=== PATIENT | male | born 1950 | race Caucasian/White ===

== ENCOUNTER 2020-01-23 06:03 | Inpatient (IN) | payer OTHER ==
[2020-01-11 12:00] VITALS: BMI 26.4
[2020-01-23] MEDS ORDERED: TRANEXAMIC ACID 1000 MG/10 ML VIAL IVPUSH ONE ×2 (06:50→10:25)
[2020-01-23] MEDS ORDERED: CELECOXIB 200 MG CAPSULE PO ONE (06:50)
[2020-01-23] MEDS ORDERED: oxyCODONE HCL 10 MG SUSTAINED ACTING TABLET PO ONE (06:50)
[2020-01-23] MEDS ORDERED: CEFAZOLIN 2 GM in DEXTROSE 5%-WATER - 50 ML IVPB ONE (06:50)
[2020-01-23] MEDS ORDERED: BUPIVICAINE 0.25%/MORPH PF/KETOROLAC - 51ML DISP.SYRINGE IA ONE ×3 (06:50→10:55)
[2020-01-23] MEDS ORDERED: PANTOPRAZOLE 40 MG TABLET PO ONE (06:51)
[2020-01-23] MEDS ORDERED: CEFAZOLIN 2 GM/D5W 2 GM/50 ML ML IVPB ONE (06:55)
[2020-01-23] MEDS ORDERED: PANTOPRAZOLE 40 MG TABLET ONE (07:02)
[2020-01-23] MEDS ORDERED: CELECOXIB 200 MG CAPSULE ONE (07:03)
[2020-01-23] MEDS ORDERED: oxyCODONE HCL 10 MG SUSTAINED ACTING TABLET ONE (07:03)
[2020-01-23] MEDS ORDERED: ROPIVACAINE HCL 0.5% 30ML VIAL ONE (07:10)
[2020-01-23] MEDS ORDERED: MIDAZOLAM HCL 2 MG/2 ML SINGLE DOSE VIAL ONE (07:10)
[2020-01-23] MEDS ORDERED: VANCOMYCIN 1,000 MG VIAL (RESTRICTED TO ID ONLY) ONE (07:18)
[2020-01-23] MEDS ORDERED: TRANEXAMIC ACID 1000 MG/10 ML VIAL ONE ×2 (07:18→07:21)
[2020-01-23] MEDS ORDERED: ceFAZolin SODIUM 1 GM VIAL ONE ×2 (07:18→07:21)
[2020-01-23] MEDS ORDERED: ONDANSETRON 4 MG/2 ML VIAL ONE (07:21)
[2020-01-23] MEDS ORDERED: DEXAMETHASONE SOD PHOSPHATE 4 MG/1 ML VIAL ONE (07:21)
[2020-01-23] MEDS ORDERED: PROPOFOL 20 ML ONE ×3 (07:21→10:18)
[2020-01-23] MEDS ORDERED: BUPIVACAINE HCL/PF 0.5% (5MG/ML) 10 ML VIAL ONE (07:29)
--- NOTE | 2020-01-23 07:45 | HP ---
Admitting History and Physical - Admission Chief Complaint: left hip osteoarthritis x years History of Present Illness: 69 year old male presents today in regard to their left hip. Longstanding history of left hip osteoarthritis. Patient complains of pain, limited ROM, difficulty ambulating and difficulty completing activities of daily living. Patient has failed conservative treatment options including PO medications, injections, exercise programs and activity modification. Diagnostic testing reveals severe osteoarthritis of the left hip joint. At this point, patient would like to proceed with surgical intervention; a left total hip arthroplasty, MAKOplasty. History Source: Patient - Past Medical History Cardiovascular: Yes: CAD, HTN Gastrointestinal: Yes: Other (IBS?) Renal/: Yes: BPH Musculoskeletal: Yes: Osteoarthritis Rheumatology: Yes: Gout Additional Past Medical History: Arthritis of the hip 2019 Coronary artery disease 2015 HTN Gout/ pseudogout? BPH hx ? IBS - Past Surgical History Additional Past Surgical History: Angiogram and stents and angioplasty 11/2015 and 12/2015 [place] 2004 (01/13) [facility], GI, Dr. Rahul Dodge, colonoscopy: pt w/ hx of polyps (01/13/05, [facility]) & tubular adenoma at hepatic flexure & rectal polyp w/ hyperplastic & adenomatous component (08/02/02) [facility]) recto-sigmoid bx: path: col mucosa w/ cryptitis, crypt hyperplasia & react atypia, no definitive polyp Right knee surgery: cartilage 35 years ago Tonsillectomy colonoscopy 2017 - ? Dr allison Meneses - Smoking History Smoking history: Never smoked Have you smoked in the past 12 months: No Aproximately how many cigarettes per day: 0 If you are a former smoker, when did you quit?: STOPPED SMOKING CIGARS X 4 YRS Home Medications - Allergies Allergies/Adverse Reactions: Allergies Allergy/AdvReac Type Severity Reaction Status Date / Time No Known Drug Allergies Allergy Verified 01/11/20 11:16 - Home Medications Home Medications: Ambulatory Orders Amlodipine Besylate 5 mg PO DAILY 01/11/20 Aspirin [Lo-Dose Aspirin EC] 81 mg PO DAILY 01/11/20 Atorvastatin Ca [Lipitor] 80 mg PO HS 01/11/20 Dutasteride [Avodart] 0.5 mg PO HS 01/11/20 Melatonin 3 mg PO HS 01/11/20 Nadolol 40 mg PO DAILY 01/11/20 Saw/Vit E/Sod Kandy/Lyc/Beta/Pyg [Prostate Health Caplet] 1 each PO DAILY 01/11/20 Terazosin HCl 2 mg PO HS 01/11/20 Ubidecarenone [Co Q-10] 200 mg PO DAILY 01/11/20 Review of Systems - Review of Systems Musculoskeletal: reports: Decreased ROM (left hip), Joint Pain (left hip) Physical Examination Vital Signs: Vital Signs Temperature 98 F 01/23/20 07:20 Pulse Rate 53 L 01/23/20 07:20 Respiratory Rate 16 01/23/20 07:20 Blood Pressure 145/82 01/23/20 07:20 O2 Sat by Pulse Oximetry (%) Constitutional: Yes: Well Nourished, No Distress Eyes: Yes: Conjunctiva Clear HENT: Yes: Atraumatic Neck: Yes: Supple Cardiovascular: Yes: Regular Rate and Rhythm Respiratory: Yes: Regular Gastrointestinal: Yes: Soft ...Rectal Exam: Yes: Deferred Musculoskeletal: Yes: Joint Stiffness (left hip), Other (Limited ROM left hip) Assessment/Plan 69 year old male presents today in regard to their left hip. Longstanding history of left hip osteoarthritis. Patient complains of pain, limited ROM, difficulty ambulating and difficulty completing activities of daily living. Patient has failed conservative treatment options including PO medications, injections, exercise programs and activity modification. Diagnostic testing reveals severe osteoarthritis of the left hip joint. At this point, patient would like to proceed with surgical intervention; a left total hip arthroplasty, MAKOplasty. Pros, cons, risks, benefits & alternatives of a left total hip arthroplasty, MAKOplasty was discussed with the patient at length. Patient confirms his understanding and consents to proceed with a left total hip arthroplasty - MAKOplasty.
[2020-01-23] MEDS ORDERED: ePHEDrine SULFATE 50 MG/1 ML AMPULE ONE (09:14)
[2020-01-23] MEDS ORDERED: oxyCODONE HCL 5 MG TABLET PO PRN ×2 (09:48)
[2020-01-23] MEDS ORDERED: ONDANSETRON 4 MG/2 ML VIAL IVPUSH PRN ×2 (09:48→11:31)
[2020-01-23] MEDS ORDERED: LACTATED RINGERS SOLUTION 1,000 ML IV SCH ×2 (10:00→11:45)
[2020-01-23] MEDS ORDERED: VANCOMYCIN 1,000 MG VIAL (RESTRICTED TO ID ONLY) IVPB ONE (10:26)
[2020-01-23] MEDS ORDERED: KETOROLAC TROMETHAMINE 30 MG/1 ML VIAL ONE ×2 (10:27→11:08)
[2020-01-23] MEDS ORDERED: ACETAMINOPHEN INJECTION 100 ML IVPB ONE (11:09)
[2020-01-23] MEDS ORDERED: traMADol HCL 50 MG TABLET ONE (11:09)
--- NOTE | 2020-01-23 11:21 | SURG ---
Surgery Training Executive Note Training Executive: Sourav Pantoja PA-C Date of Service: 01/23/20 Diagnosis: Left hip osteoarthritis Procedure: Left hip kiet assisted arthroplasty I was present for the entirety of the operative procedure. For further detail, please refer to operative report. Visit type - Case Type Case Type: Scheduled - Emergency Emergency Visit: No - New patient This patient is new to me today: Yes Date on this admission: 01/23/20 - Critical Care Critical Care patient: No
[2020-01-23] MEDS ORDERED: MAGNESIUM HYDROX 2400MG/30ML ORAL SUSPENSION 30 ML CUP PO PRN (11:31)
[2020-01-23] MEDS ORDERED: MAG HYDROX/AL HYDROX/SIMETH 30 ML UNIT-DOSE CUP PO PRN (11:31)
--- NOTE | 2020-01-23 11:36 | OP ---
Operative Note - Note: Operative Date: 01/23/20 Pre-Operative Diagnosis: Left hip OA Operation: Left BERNARDINO CHRISTINE Post-Operative Diagnosis: Same as Pre-op Surgeon: Justin De La Cruz Director Of Business Operations: Sourav Pantoja Anesthesia: Spinal Estimated Blood Loss (mls): 200
[2020-01-23] MEDS ORDERED: ACETAMINOPHEN 1000 MG/100 ML VIAL (NON FORMULARY) IVPB ONE (11:37)
[2020-01-23] MEDS: traMADol HCL 50 MG TABLET PO SCH (12:00)
[2020-01-23] MEDS ORDERED: KETOROLAC TROMETHAMINE 30 MG/1 ML VIAL IVPUSH SCH (18:00)
[2020-01-23] MEDS ORDERED: DEXAMETHASONE SOD PHOSPHATE 10 MG/1 ML VIAL IVPB ONE (20:00)
[2020-01-23] MEDS: SENNOSIDES/DOCUSATE COMBO (SENNA PLUS) TABLET (UD) PO SCH (21:21)
[2020-01-23] MEDS: CELECOXIB 200 MG CAPSULE PO SCH (21:22)
[2020-01-23] MEDS: ASCORBIC ACID 500 MG TABLET (FP) PO SCH (21:22)
[2020-01-23] MEDS: GABAPENTIN 300 MG CAPSULE PO SCH (21:22)
[2020-01-23] MEDS: oxyCODONE HCL 10 MG SUSTAINED ACTING TABLET PO SCH (21:22)
[2020-01-23] MEDS: CEFAZOLIN 2 GM/D5W 2 GM/50 ML ML IVPB SCH (21:23)
[2020-01-23] MEDS: ACETAMINOPHEN 325 MG TABLET (FP) PO SCH (21:23)
[2020-01-23] MEDS ORDERED: TERAZOSIN HCL 2 MG CAPSULE PO SCH (22:00)
[2020-01-23] MEDS ORDERED: ATORVASTATIN CA 80 MG TABLET (FP) PO SCH (22:00)
[2020-01-23] MEDS ORDERED: DUTASTERIDE 0.5 MG CAP (FP) PO SCH (22:00)
[2020-01-24] MEDS: traMADol HCL 50 MG TABLET PO SCH (00:31)
[2020-01-24] MEDS: CEFAZOLIN 2 GM/D5W 2 GM/50 ML ML IVPB SCH (02:26)
[2020-01-24] MEDS: ACETAMINOPHEN 325 MG TABLET (FP) PO SCH ×2 (03:22→09:10)
[2020-01-24 07:41] LABS: HEMATOCRIT 37.7 % (35.4-49); HEMOGLOBIN 12.9 GM/dl (11.7-16.9); MCH 31.2 pg (25.7-33.7); MCHC 34.1 g/dl (32.0-35.9); MEAN CELL VOLUME 91.5 fl (80-96); MEAN PLT VOLUME 8.6 fl (7.5-11.1); PLATELET COUNT 194 K/MM3 (134-434); RBC 4.12 M/mm3 (4.00-5.60); RDW 12.7 % (11.9-15.9)
[2020-01-24 07:48] LABS: CALCIUM 8.4 mg/dl (8.5-10); CREATININE 1.1 mg/dl (0.55-1.3); POTASSIUM 4.6 mmol/L (3.5-5.1)
--- NOTE | 2020-01-24 07:58 | PN ---
Progress Note (short form) - Note Progress Note: 69M POD#1 for L THR under spinal anesthesia with paravertebral block. Pt. doing great this am. Sitting in bed. VSS. Pain 0/10. No anesthesia related complications.
[2020-01-24] MEDS ORDERED: ASPIRIN 325 MG TABLET PO SCH (08:00)
[2020-01-24] MEDS: oxyCODONE HCL 10 MG SUSTAINED ACTING TABLET PO SCH (09:10)
[2020-01-24] MEDS: CELECOXIB 200 MG CAPSULE PO SCH (09:11)
[2020-01-24] MEDS: SENNOSIDES/DOCUSATE COMBO (SENNA PLUS) TABLET (UD) PO SCH (09:12)
[2020-01-24] MEDS: ASCORBIC ACID 500 MG TABLET (FP) PO SCH (09:12)
[2020-01-24] MEDS: GABAPENTIN 300 MG CAPSULE PO SCH (09:12)
[2020-01-24] MEDS ORDERED: MULTIVITAMINS (DAILY MVI) TABLET (FP) PO SCH (10:00)
[2020-01-24] MEDS ORDERED: amLODIPine BESYLATE 5 MG TABLET (FP) PO SCH (10:00)
[2020-01-24] MEDS ORDERED: NADOLOL 40 MG TABLET (FP) PO SCH (10:00)
[2020-01-24] MEDS ORDERED: PANTOPRAZOLE 40 MG TABLET PO SCH (10:00)
[2020-01-24] MEDS ORDERED: NADOLOL 20 MG TABLET (FP) PO SCH (10:00)
[2020-01-24 14:12] VITALS: BP 124/65; PULSE 52; TEMP 97.7
--- NOTE | 2020-01-24 19:32 | DS ---
Physical Examination Vital Signs: Vital Signs Temperature 97.7 F 01/24/20 14:00 Pulse Rate 52 L 01/24/20 14:00 Respiratory Rate 16 01/24/20 14:00 Blood Pressure 124/65 01/24/20 14:00 O2 Sat by Pulse Oximetry (%) 99 01/24/20 14:00 Labs: CBC, BMP 01/24/20 07:03 01/24/20 07:03 Discharge Summary Problems reviewed: Yes Reason For Visit: LEFT HIP OSTEOARTHRITIS Procedures: Principal: left BERNARDINO CHRISTINE Hospital Course: Admitted for elective surgery. Procedure performed without complications. Pt received postoperative antibiotic prophylaxis and DVT ppx. Ambulated with physical therapy. Stable for discharge home with outpatient followup. Condition: Stable - Instructions Diet, Activity, Other Instructions: Dr De La Cruz - Hip Replacement Instructions Keep the Aquacel dressing on until removed by Dr. De La Cruz in the office - it is antibacterial and waterproof and you can shower with it on. Call the office for a follow-up appointment with Dr. De La Cruz on ThursdayFebruary 02 . [phone] Take one Aspirin 325mg daily for 6 weeks to prevent blood clots in your legs. Take one Pantoprazole 40mg daily for 6 weeks to protect against heartburn and ulcers. Take Cephalexin (antibiotic) 3x/day for 10 days to help prevent skin infection. Take Celebrex 200mg twice daily for 30 days to reduce swelling and inflammation. Take a multivitamin, stool softener and extra Vitamin C supplement daily. For pain: *Mild pain (1-3/10): Take 1 Tramadol tablet every 4 hours as needed. Moderate pain (4-6/10): Take 1 Tramadol tablet and 1 Percocet tablet every 4 hours as needed. Severe pain (7-10/10): Take 1 Tramadol tablet and 2 Percocet tablets every 4 hours as needed. Activity: You can put as much weight on the operative leg as you want. For the first 6 weeks, all you need to do is walk around the house, go up/down stairs, and sit down/get up. After 6 weeks when everything is healed (and bone has grown into the implant) you will be sent for more intensive outpatient physical therapy. Always use a walker or cane for balance and to prevent falls. Expect to see swelling / bruising from the operative site all the way down to your toes. Wear the Compression stocking on the operative side during the day to minimize how much swelling there is in your foot/ankle. Don't wear the stocking at night. You don't have to wear the stocking on the other side. Disposition: [facility]NS/HOME HEALTH CARE - Home Medications Comprehensive Discharge Medication List: Ambulatory Orders Amlodipine Besylate 5 mg PO DAILY 01/11/20 Atorvastatin Ca [Lipitor] 80 mg PO HS 01/11/20 Dutasteride [Avodart] 0.5 mg PO HS 01/11/20 Melatonin 3 mg PO HS 01/11/20 Nadolol 40 mg PO DAILY 01/11/20 Saw/Vit E/Sod Kandy/Lyc/Beta/Pyg [Prostate Health Caplet] 1 each PO DAILY 01/11/20 Terazosin HCl 2 mg PO HS 01/11/20 Ubidecarenone [Co Q-10] 200 mg PO DAILY 01/11/20 Ascorbic Acid [Vitamin C -] 500 mg PO BID tablet 01/23/20 Aspirin [ASA -] 325 mg PO DAILY@0800 tablet 01/23/20 Celecoxib [CeleBREX -] 200 mg PO BID #60 capsule 01/23/20 Cephalexin Monohydrate [Keflex -] 500 mg PO TID #30 capsule 01/23/20 Multivitamins [Multivit ([facility] Formulary)] 1 tab PO DAILY tab 01/23/20 Oxycodone HCl/Acetaminophen [Percocet 5-325 mg Tablet] 1 - 2 tab PO Q4H PRN #60 tablet MDD 10 01/23/20 Pantoprazole Sodium [Protonix -] 40 mg PO DAILY #40 tablet.ec 01/23/20 Sennosides/Docusate Sodium [Pericolace -] 2 tablet PO BID tablet 01/23/20 traMADol HCL [Ultram -] 50 mg PO Q4H PRN #42 tablet MDD 6 01/23/20
--- NOTE | 2020-01-25 10:04 | SPEC ---
DATE OF OPERATION: 01/23/2020 PREOPERATIVE DIAGNOSIS: Left hip osteoarthritis. POSTOPERATIVE DIAGNOSIS: Left hip osteoarthritis. PROCEDURE: Left total hip replacement with MAKOplasty and robotic navigation. ATTENDING: Rosa Dejesus MD DIVING INSTRUCTOR: KRISTAL Crocker ANESTHESIA: Spinal plus sedation. ESTIMATED BLOOD LOSS: 200 mL. COMPLICATIONS: None. DISPOSITION: The patient was transferred to the PACU in stable condition. IMPLANTS USED: Keila Accolade II size 8 femoral component, 56-mm Trident II acetabular component with MDM bipolar head ball and liner with plus 8-mm offset inner head ball, and 20-, 25-, and 25-mm acetabular screws. INDICATIONS: This is a 69-year-old male who presents to the office complaining of severe left hip pain for several years. He was seen ad examined by Dr. Dejesus and diagnosed with severe left hip osteoarthritis. The patient was initially treated conservatively with injections, medications, and physical therapy, but continued to have severe pain and ambulatory dysfunction. He was, therefore, indicated for a left total hip replacement. The risks, benefits, and alternatives to the procedure were explained to the patient in great detail, and he elected to proceed with the surgery. On the day of surgery, the patient was taken to the operating room and placed on the OR table. Spinal anesthesia was administered by the anesthesiologist. The patient was then positioned in the lateral decubitus position on the table and all bony prominences were padded. An axillary roll was placed. The operative hip was then prepped and draped in the usual sterile fashion and intravenous antibiotics were given for infection prophylaxis. A surgical time-out was then performed with the team, and the patients identity, procedure, side, availability of implants, and the administration of antibiotics were confirmed. An approximately 15-cm longitudinal incision was made through the skin centered on the greater trochanter of the hip. This dissection was carried down through the subcutaneous tissues to the deep fascia. This fascia was then incised and a Cobra was placed around the inferior femoral neck. Electrocautery was used to reflect the anterior 40% of the gluteus medius and minimus starting at the musculotendinous junction and leaving a cuff for closure. This was reflected to reveal the capsule of the hip joint. An anterior capsulectomy was performed and the femoral head and neck were visualized. Grade 4 changes were noted diffusely throughout the joint. At this point, three small stab incisions were made superior to the main incision along the iliac crest. Three self-drilling Steinmann pins were then placed and the [employer] pelvic array was attached. Reference points on the limb were then entered into the robotic device and the limb length deficiency, offset, and femoral neck resection level were then calculated by the software. The hip was then dislocated with traction and external rotation. An oscillating saw was used to make the femoral neck cut at the level previously templated, and the femoral head was removed. Attention was then turned to the acetabulum. Retractors were then placed around the acetabulum and the labrum was removed. An acetabular checkpoint pin and the [employer] software were used to register the contours of the acetabulum. The acetabulum was then reamed in a single stage to the preoperatively templated size using the Jesse robotic arm. The appropriately sized cup was then impacted and had solid fixation as well as the preset inclination and version of 40 and 20 degrees, respectively. A polyethylene liner was then placed in the cup. Attention was then turned back to the femur, which was externally rotated for improved visualization. A femoral neck elevator was used to present the femoral neck cut, a box osteotome was used to enter the femoral canal, and a canal finder was used to go down the femoral shaft. The Jesse broaches were used sequentially until the optimal scratch fit was achieved. This correlated with the preoperatively templated size. From here, several different offset head and neck configurations were tested until excellent stability and length were obtained. These measurements were quantified using the [employer] software. All trial components were then removed, the femur was copiously irrigated, and the final components were placed. Leg length and stability were checked again and found to be excellent. Irrigation was performed again. Wound closure was started by repairing the abductor muscles with a no. 2 FiberWire stitch in a Krackow configuration passed through bone tunnels in the greater trochanter and tied over a bony bridge. This repair was then reinforced with a 0 V-Loc 180 barbed suture. Next, no. 1 Polysorb and 0 V-Loc 180 were used to close the fascia. The deep subcutaneous tissue was closed with no. 1 Polysorb sutures, and 2-0 Polysorb was used for the superficial subcutaneous tissue. The skin was closed using both 3-0 V-Loc 90 suture in a running subcuticular fashion and SwiftSet skin adhesive. The Jesse array and pins were removed from the iliac crest and the stab incision sites were irrigated and closed with 4-0 Polysorb sutures and SwiftSet skin adhesive. Once this was completed, a sterile dressing was applied. The patient was then awakened and taken to the PACU in stable condition. ROAS DEJESUS M.D. [id number]
--- NOTE | 2020-01-27 18:09 | PATH ---
Surgical Pathology Report Patient Name: ASMITA AYALA Med. Rec. #: [id number] /Age/Gender: 1950 (Age: 69) / M Account: [id number] [facility] Taken: 01/23/2020 Received: 01/23/2020 Reported: 01/27/2020 Physicians: Justin De La Cruz M.D. Specimen(s) Received LEFT FEMORAL HEAD Clinical History Left hip osteoarthritis Final Diagnosis FEMORAL HEAD, LEFT, TOTAL HIP REPLACEMENT: DEGENERATIVE JOINT DISEASE. Electronically Signed Eva Figueroa M.D. Gross Description Received in formalin, labeled "left femoral head," is a 5.0 x 4.8 x 4.8 cm. femoral head with a 1.6 cm in length portion of femoral neck attached. The margin of resection is smooth. There is a 4.9 cm greatest dimension area of eburnation present. The remaining articular surface is engel-yellow and focally granular. The underlying trabecular bone is yellow and hard. A rental sales representative section is submitted in one cassette, following decalcification. 01/25/2020 [facility]01/25/2020
== END 2020-01-24 15:22 | disposition home health service (06) | DRG 470 ==
LOC: FM/S 06:03
PROVIDERS: ADMIT Student in an Organized Health Care Education/Training Program; ATTEND Student in an Organized Health Care Education/Training Program
PROC: 8E0W0CZ Robotic Assisted Procedure of Trunk Region, Open Approach (ICD-10-PCS; 2020-01-23)
PROC: 0SRB0JA Replacement of Left Hip Joint with Synthetic Substitute, Uncemented, Open Approach (ICD-10-PCS; principal; 2020-01-23 09:04)
DX: M16.12 Unilateral primary osteoarthritis, left hip (principal); I25.10 Atherosclerotic heart disease of native coronary artery without angina pectoris; I10 Essential (primary) hypertension; N40.0 Benign prostatic hyperplasia without lower urinary tract symptoms
CPT/HCPCS: 36415; 73502-TC-LT-FY; 80048; 85027; 88305-TC; 88311-TC; 94760; 97010-GP; 97116-GP; 97162-GP; J0131; J1100